=== PATIENT | male | born 1990 | race Caucasian/White ===

== ENCOUNTER 2021-04-13 01:03 | Emergency (ER) | payer OTHER ==
[2021-04-13 03:38] LABS: HEMOGLOBIN 15.9 gm/dl (14.0-17.5); RED BLOOD COUNT 5.32 M/UL (4.20-5.50); WHITE BLOOD COUNT 6.2 K/UL (4.5-11.0)
[2021-04-13 04:06] LABS: BUN/CREATININE RATIO 9 (0-10)
== END 2021-04-13 07:37 | disposition home or self-care (01) ==
LOC: ER1 01:03
PROVIDERS: Family Medicine
DX: R07.9 Chest pain, unspecified (principal); R10.9 Unspecified abdominal pain
CPT/HCPCS: 71046; 80053; 82550; 82553; 83874; 84484; 85025; 99285

== ENCOUNTER 2022-04-05 10:09 | Emergency (ER) | payer SELFPAY ==
[2022-04-05] MEDS ORDERED: FLONASE 0.05% N16 GM (12:52)
[2022-04-05] MEDS ORDERED: DELSYM30 MG/5 ML PO (12:52)
[2022-04-05] MEDS ORDERED: IBUPROFEN600 MG PO (12:52)
== END 2022-04-05 13:16 | disposition home or self-care (01) ==
LOC: ER1 10:09
DX: U07.1 COVID-19 (principal)
CPT/HCPCS: 0240U; 87081; 87880; 99283